=== PATIENT | female | born 1985 | race Caucasian/White ===

== ENCOUNTER → 2018-01-08 | Outpatient (REF) | payer BC | LOC: M LAB REF 18:29 | DX: J02.9 Acute pharyngitis, unspecified (principal) | CPT/HCPCS: 87081 ==

== ENCOUNTER → 2018-02-06 | Outpatient (CLI) | payer BC ==
[2018-02-06 13:33] LABS: BASO % 0.4 % (0.0-1.0); EOS # 0.1 10^3/uL (0.0-0.50); EOS % 0.7 % (0.0-3.0); HEMATOCRIT 37.4 % (36.0-47.0); HEMOGLOBIN 12.8 g/dl (12.0-15.5); IMMATURE GRANULOCYTE % 0.2 % (0-3.0); LYMPH # 1.4 10^3/uL (1.5-4.5); LYMPH % 16.6 % (24.0-44.0); MEAN CORPUSCULAR HGB CONC 34.2 g/dl (32.0-36.5); MEAN CORPUSCULAR VOLUME 87.6 fl (80.0-96.0); MONO # 0.5 10^3/uL (0.0-0.8); MONO % 6.3 % (0.0-5.0); NEUTROPHILS # 6.3 10^3/uL (1.8-7.7); NEUTROPHILS % 75.8 % (36.0-66.0); PLATELET COUNT, AUTOMATED 229 10^3/uL (150-450); RED BLOOD COUNT 4.27 10^6/uL (4.00-5.40); RED CELL DISTRIBUTION WIDTH 12.3 % (11.5-14.5); WHITE BLOOD COUNT 8.4 10^3/uL (4.0-10.0)
[2018-02-06 14:09] LABS: RUBELLA IgG QUALITATIVE IMMUNE (IMMUNE)
[2018-02-06 14:11] LABS: HBsAg Prenatal NEGATIVE (NEGATIVE)
[2018-02-06 14:38] LABS: HIV 1&2 SCREEN CENTAUR NEGATIVE (NEGATIVE)
[2018-02-06 14:51] LABS: CHLAMYDIA DNA AMPLIFICATION NEGATIVE (NEGATIVE); GC DNA AMPLIFICATION NEGATIVE (NEGATIVE)
== END ==
LOC: M SMT 08:58
DX: Z34.81 Encounter for supervision of other normal pregnancy, first trimester (principal); Z3A.08 8 weeks gestation of pregnancy

== ENCOUNTER → 2018-05-15 | Outpatient (CLI) | payer BC ==
[2018-05-15 18:25] LABS: BASO % 0.3 % (0.0-1.0); EOS # 0.1 10^3/uL (0.0-0.50); EOS % 0.5 % (0.0-3.0); HEMATOCRIT 35.5 % (36.0-47.0); HEMOGLOBIN 11.9 g/dl (12.0-15.5); IMMATURE GRANULOCYTE % 0.7 % (0-3.0); LYMPH # 1.6 10^3/uL (1.5-4.5); LYMPH % 15.1 % (24.0-44.0); MEAN CORPUSCULAR HEMOGLOBIN 31.6 pg (27.0-33.0); MEAN CORPUSCULAR HGB CONC 33.5 g/dl (32.0-36.5); MEAN CORPUSCULAR VOLUME 94.4 fl (80.0-96.0); MONO # 0.7 10^3/uL (0.0-0.8); MONO % 6.8 % (0.0-5.0); NEUTROPHILS % 76.6 % (36.0-66.0); PLATELET COUNT, AUTOMATED 210 10^3/uL (150-450); RED BLOOD COUNT 3.76 10^6/uL (4.00-5.40); RED CELL DISTRIBUTION WIDTH 12.5 % (11.5-14.5); WHITE BLOOD COUNT 10.4 10^3/uL (4.0-10.0)
[2018-05-15 18:38] LABS: GLUCOSE CHALLENGE TEST 1 HOUR 73 MG/DL (LESS THAN 140)
[2018-05-16 08:50] LABS: TYPE AND SCREEN 1 1
== END ==
LOC: M SMT 13:22
DX: Z34.82 Encounter for supervision of other normal pregnancy, second trimester (principal)
CPT/HCPCS: 82950

== ENCOUNTER → 2018-07-24 | Outpatient (REF) | payer BC | LOC: M LAB REF 13:12 | DX: Z34.83 Encounter for supervision of other normal pregnancy, third trimester (principal) | CPT/HCPCS: 87081 ==

== ENCOUNTER 2018-08-23 07:22 | Inpatient (IN) | payer BC ==
[2018-08-23 09:03] LABS: HEMATOCRIT 36.1 % (36.0-47.0); HEMOGLOBIN 12.5 g/dl (12.0-15.5); MEAN CORPUSCULAR HEMOGLOBIN 30.7 pg (27.0-33.0); MEAN CORPUSCULAR HGB CONC 34.6 g/dl (32.0-36.5); MEAN CORPUSCULAR VOLUME 88.7 fl (80.0-96.0); PLATELET COUNT, AUTOMATED 164 10^3/uL (150-450); RED BLOOD COUNT 4.07 10^6/uL (4.00-5.40); RED CELL DISTRIBUTION WIDTH 12.5 % (11.5-14.5); WHITE BLOOD COUNT 15.2 10^3/uL (4.0-10.0)
[2018-08-23] MEDS: LR 1,000 ML IV (09:24)
[2018-08-23] MEDS: OXYTOCIN DRIP 30 UNITS in APPROPRIATE DILUENT 1 EA IV (09:25)
[2018-08-23] MEDS: LACTATED RINGER'S 1000 ML IV (14:55)
[2018-08-23] MEDS ORDERED: FENTANYL 2MCG/ML ROPIVACAINE 0.2% IN 0.9% NACL 200ML IVBAG As Ordered (14:58)
[2018-08-23] MEDS: FENTANYL/ROPIVACAINE/NACL BAG 200 ML EPIDURAL (15:46)
[2018-08-23] MEDS ORDERED: diphenhydrAMINE INJ 50MG/ML VIAL (J1200) IV (17:15)
[2018-08-23] MEDS ORDERED: EPIDURAL COMMENT XX (17:15)
[2018-08-23] MEDS ORDERED: REFRIGERATOR IV KEYS XX (17:15)
[2018-08-23] MEDS ORDERED: LACTATED RINGER'S 1000 ML IV (17:15)
[2018-08-23] MEDS ORDERED: ONDANSETRON 4MG/2ML VIAL (J2405) IV ×2 (17:15→23:16)
[2018-08-23] MEDS ORDERED: NALOXONE INJ 0.4 MG/1 ML VIAL (J2310) IV ×3 (17:15→23:16)
[2018-08-23] MEDS ORDERED: ePHEDrine SULFATE 25 MG/5 ML(5MG/ML) SYRINGE IV (17:15)
[2018-08-23] MEDS ORDERED: EPIDURAL/PCA KEYS XX (17:15)
[2018-08-23] MEDS ORDERED: ceFAZolin 2 GM/D5W 50 ML IV BAG (J0690 PER 500MG) As Ordered (22:43)
[2018-08-23] MEDS ORDERED: AZITHROMYCIN INJ 500MG VIAL (J0456) As Ordered (22:44)
[2018-08-23] MEDS ORDERED: BICITRA 30ML SOLN UDC As Ordered (22:45)
[2018-08-23] MEDS ORDERED: OXYTOCIN INJ 10 UNITS/ML VIAL (J2590) As Ordered ×3 (23:01)
[2018-08-23] MEDS ORDERED: MORPHINE PRES-FREE INJ 10 MG/10 ML VIAL (J2274) As Ordered (23:01)
[2018-08-23] MEDS ORDERED: METOCLOPRAMIDE INJ 10MG/2ML VIAL (J2765) IV (23:16)
[2018-08-23] MEDS ORDERED: NALBUPHINE HCL 10 MG/ML AMP (J2300) IV (23:16)
[2018-08-23] MEDS ORDERED: ONDANSETRON 4MG/2ML VIAL (J2405) As Ordered (23:27)
[2018-08-23] MEDS ORDERED: PHENYLephrine HCL 500 MCG/5 ML (100MCG/ML) SYRINGE (J2370) As Ordered (23:33)
[2018-08-23] MEDS ORDERED: ePHEDrine SULFATE 25 MG/5 ML(5MG/ML) SYRINGE As Ordered (23:33)
[2018-08-24] MEDS: OXYTOCIN DRIP 30 UNITS in APPROPRIATE DILUENT 1 EA IV (00:31)
[2018-08-24] MEDS: LR 1,000 ML IV (00:31)
[2018-08-24] MEDS ORDERED: PERCOCET 5MG/325MG TAB PO ×2 (00:45→02:30)
[2018-08-24] MEDS ORDERED: MEASLES,MUMPS,RUBELLA VACCINE INJ (MMR-II) (90707) SC (00:45)
[2018-08-24] MEDS ORDERED: ONDANSETRON 4MG/2ML VIAL (J2405) IV ×2 (00:45→02:30)
[2018-08-24] MEDS ORDERED: PROMETHAZINE 25 MG TAB PO (00:45)
[2018-08-24] MEDS ORDERED: fentaNYL 100 MCG/2 ML INJECTION (J3010) As Ordered (00:45)
[2018-08-24] MEDS ORDERED: KETOROLAC 30 MG/ML VIAL (J1885) As Ordered (01:13)
[2018-08-24] MEDS ORDERED: MEPERIDINE INJ 25 MG/ML VIAL (J2175) IV (02:30)
[2018-08-24] MEDS ORDERED: NALBUPHINE HCL 10 MG/ML AMP (J2300) IV (02:30)
[2018-08-24] MEDS ORDERED: KETOROLAC 30 MG/ML VIAL (J1885) IV (02:30)
[2018-08-24] MEDS ORDERED: HYDROMORPHONE HCL 0.5 MG/ 0.5 ML SYRINGE (J1170 PER 1) IV (02:30)
[2018-08-24] MEDS ORDERED: fentaNYL 100 MCG/2 ML INJECTION (J3010) IV (02:30)
[2018-08-24] MEDS: PERCOCET 5MG/325MG TAB PO ×3 (05:55→22:43)
[2018-08-24] MEDS: KETOROLAC 30 MG/ML VIAL (J1885) IV ×3 (06:49→18:33)
[2018-08-24 07:57] LABS: HEMATOCRIT 28.7 % (36.0-47.0); MEAN CORPUSCULAR HEMOGLOBIN 31.2 pg (27.0-33.0); MEAN CORPUSCULAR HGB CONC 35.2 g/dl (32.0-36.5); MEAN CORPUSCULAR VOLUME 88.6 fl (80.0-96.0); PLATELET COUNT, AUTOMATED 155 10^3/uL (150-450); RED BLOOD COUNT 3.24 10^6/uL (4.00-5.40); RED CELL DISTRIBUTION WIDTH 12.5 % (11.5-14.5); WHITE BLOOD COUNT 24.7 10^3/uL (4.0-10.0)
[2018-08-24 08:06] LABS: HEMOGLOBIN 10.1 g/dl (12.0-15.5)
[2018-08-24] MEDS: PRENATAL VITAMINS CHEWABLE TABLET PO (08:31)
[2018-08-24] MEDS: DOCUSATE SODIUM 100 MG CAP PO ×2 (08:31→20:14)
[2018-08-24 19:18] LABS: FETAL SCREEN PROF. 1 1
[2018-08-24] MEDS: RHOGAM 300 MCG (1500 IU) INJ (J2790) IM (20:16)
[2018-08-25] MEDS: IBUPROFEN 800 MG TAB PO ×2 (02:21→11:06)
[2018-08-25 06:59] LABS: HEMATOCRIT 29.8 % (36.0-47.0); HEMOGLOBIN 10.1 g/dl (12.0-15.5); MEAN CORPUSCULAR HEMOGLOBIN 31.1 pg (27.0-33.0); MEAN CORPUSCULAR HGB CONC 33.9 g/dl (32.0-36.5); MEAN CORPUSCULAR VOLUME 91.7 fl (80.0-96.0); PLATELET COUNT, AUTOMATED 157 10^3/uL (150-450); RED BLOOD COUNT 3.25 10^6/uL (4.00-5.40); RED CELL DISTRIBUTION WIDTH 13.1 % (11.5-14.5)
[2018-08-25] MEDS: DOCUSATE SODIUM 100 MG CAP PO (08:36)
[2018-08-25] MEDS: PERCOCET 5MG/325MG TAB PO (08:36)
[2018-08-25] MEDS: PRENATAL VITAMINS CHEWABLE TABLET PO (08:36)
== END 2018-08-25 12:48 | disposition home or self-care (01) | DRG 540 ==
LOC: M LDI 07:22 → M OBS 08-24 02:07
PROVIDERS: Obstetrics & Gynecology
PROC: 10D00Z1 Extraction of Products of Conception, Low, Open Approach (ICD-10-PCS; principal; 2018-08-23 23:07)
PROC: 3E033VJ Introduction of Other Hormone into Peripheral Vein, Percutaneous Approach (ICD-10-PCS; 2018-08-23 23:07)
DX: O48.0 Post-term pregnancy (principal); O64.0XX0 Obstructed labor due to incomplete rotation of fetal head, not applicable or unspecified; O36.63X0 Maternal care for excessive fetal growth, third trimester, not applicable or unspecified; Z37.0 Single live birth; Z3A.40 40 weeks gestation of pregnancy; O62.0 Primary inadequate contractions

== ENCOUNTER → 2018-11-03 | Outpatient (REF) | payer BC ==
[~2018-11-03] MED LIST: APAP325T4 PO; COLA100C5 PO; IBUP80TA PO; PERCOCET PO; PRENTAB31 PO; ZYRTTAB8 PO
[2018-11-07 15:26] LABS: HPV HYBRID CAPTURE II Negative (Negative)
== END ==
LOC: M LAB REF 17:21
PROVIDERS: ATTEND Advanced Practice Midwife
DX: Z12.4 Encounter for screening for malignant neoplasm of cervix (principal)
CPT/HCPCS: 87624; G0123

== ENCOUNTER → 2018-11-06 | Outpatient (CLI) | payer BC | LOC: M SMT 13:56 | PROVIDERS: ATTEND Advanced Practice Midwife | DX: Z13.79 Encounter for other screening for genetic and chromosomal anomalies (principal) ==

== ENCOUNTER → 2018-12-06 | Outpatient (REF) | payer BC | LOC: M LAB REF 19:22 | PROVIDERS: ATTEND Physician Assistant | DX: J02.9 Acute pharyngitis, unspecified (principal) ==

== ENCOUNTER → 2019-03-14 | Outpatient (REF) | payer BC | LOC: M SFHCPLAZ 17:22 | PROVIDERS: ATTEND Dermatology | DX: D22.5 Melanocytic nevi of trunk (principal); D18.01 Hemangioma of skin and subcutaneous tissue ==

== ENCOUNTER → 2019-11-06 | Outpatient (REF) | payer BC | LOC: M SFHCWAGY 11:54 | PROVIDERS: ATTEND Advanced Practice Midwife | DX: Z12.4 Encounter for screening for malignant neoplasm of cervix (principal) ==

== ENCOUNTER → 2020-08-26 | Outpatient (REF) | payer BC | LOC: M LAB REF 14:13 | PROVIDERS: ATTEND Dermatology | DX: D49.2 Neoplasm of unspecified behavior of bone, soft tissue, and skin (principal) ==

== ENCOUNTER → 2021-02-23 | Outpatient (REF) | payer BC | LOC: M SFHCWAGY 12:51 | PROVIDERS: ATTEND Advanced Practice Midwife | DX: Z12.4 Encounter for screening for malignant neoplasm of cervix (principal) ==

== ENCOUNTER → 2022-06-15 | Outpatient (REF) | payer BC | LOC: M SFHCWAGY 16:53 | PROVIDERS: ATTEND Advanced Practice Midwife | DX: Z12.4 Encounter for screening for malignant neoplasm of cervix (principal); B37.3 Candidiasis of vulva and vagina | CPT/HCPCS: 87624; G0123 ==

== ENCOUNTER → 2022-06-16 | Outpatient (CLI) | payer BC ==
[2022-06-16 12:56] LABS: BASO % 0.5 % (0.0-1.0); EOS % 0.5 % (0.0-3.0); HEMATOCRIT 41.9 % (36.0-47.0); HEMOGLOBIN 13.8 g/dl (12.0-15.5); LYMPH # 1.3 10^3/uL (1.5-5.0); LYMPH % 20.7 % (24.0-44.0); MEAN CORPUSCULAR HEMOGLOBIN 30.9 pg (27.0-33.0); MEAN CORPUSCULAR HGB CONC 32.9 g/dl (32.0-36.5); MEAN CORPUSCULAR VOLUME 93.7 fl (80.0-96.0); MONO # 0.5 10^3/uL (0.0-0.8); MONO % 7.7 % (2.0-8.0); NEUTROPHILS # 4.5 10^3/uL (1.5-8.5); NEUTROPHILS % 70.3 % (36.0-66.0); PLATELET COUNT, AUTOMATED 260 10^3/uL (150-450); RED BLOOD COUNT 4.47 10^6/uL (4.00-5.40); WHITE BLOOD COUNT 6.4 10^3/uL (4.0-10.0)
[2022-06-16 13:58] LABS: ALBUMIN 3.8 GM/DL (3.2-5.2); ALT/SGPT 20 U/L (12-78); BILIRUBIN,TOTAL 0.6 MG/DL (0.2-1.0); BLOOD UREA NITROGEN 11 MG/DL (7-18); CALCIUM LEVEL 8.9 MG/DL (8.5-10.1); CARBON DIOXIDE LEVEL 27 MEQ/L (21-32); CHLORIDE LEVEL 106 MEQ/L (98-107); CHOLESTEROL LEVEL 160 MG/DL (<200); CHOLESTEROL RISK RATIO 2.388 (<5); CREATININE FOR GFR 0.92 MG/DL (0.55-1.30); GLOMERULAR FILTRATION RATE > 60.0 (>60); GLUCOSE, FASTING 76 MG/DL (70-100); HDL CHOLESTEROL 67 MG/DL (>40); LDL CHOLESTEROL 83 MG/DL (<100); NON-HDL-C 93 MG/DL; POTASSIUM SERUM 4.5 MEQ/L (3.5-5.1); SODIUM LEVEL 138 MEQ/L (136-145); TOTAL PROTEIN 7.1 GM/DL (6.4-8.2); TRIGLYCERIDES LEVEL 51 MG/DL (<150)
== END ==
LOC: M ADAMS 08:45
PROVIDERS: ATTEND Family Medicine
DX: Z00.00 Encounter for general adult medical examination without abnormal findings (principal)

== ENCOUNTER → 2024-08-21 | Outpatient (REF) | payer BC ==
[2024-08-24 14:07] LABS: HPV APTIMA Not Detected (Not Detected)
== END ==
LOC: M SFHCWAGY 14:58
PROVIDERS: ATTEND Advanced Practice Midwife
DX: Z12.4 Encounter for screening for malignant neoplasm of cervix (principal)
CPT/HCPCS: 87624; G0123